=== PATIENT | male | born 1960 | race Caucasian/White ===

== ENCOUNTER 2017-01-27 11:22 | Emergency (ER) | payer OTHER ==
[2017-01-27 11:29] VITALS: TEMP 97.7; BMI 32.3
--- NOTE | 2017-01-27 11:57 | PDOC ---
History of Present Illness - General Chief Complaint: Lightheaded Stated Complaint: LIGHTHEADED Time Seen by Provider: 01/27/17 11:57 - History of Present Illness Initial Comments: 56 year old male with no PMH presenting with lightheadedness x2 over the past 24 hours. Patient states that he was on a diet for the past few weeks and went to zoroastrianism last night. When he kneeled to pray he began to feel slightly light headed and felt as if his left leg was heavy/ numb. When he stood up and began to walk he felt better. He believes that he was very hungry still and that caused his symptoms because he ate a heavy meal this morning and felt better. PCP: Rafiq 01/27/17 12:08 Past History - Past Medical History Allergies/Adverse Reactions: Allergies Allergy/AdvReac Type Severity Reaction Status Date / Time No Known Allergies Allergy Verified 01/27/17 11:26 Home Medications: Ambulatory Orders NK [No Known Home Medication] 01/27/17 COPD: No - Suicide/Smoking/Psychosocial Hx Smoking History: Never smoked Have you smoked in the past 12 months: No Information on smoking cessation initiated: No Hx Alcohol Use: No Drug/Substance Use Hx: No Substance Use Type: None Review of Systems - Review of Systems Constitutional: No: Chills, Diaphoresis HEENTM: No: Blurred Vision Respiratory: No: Cough, Orthopnea, Shortness of Breath, Wheezing Cardiac (ROS): Yes: Lightheadedness. No: Chest Pain, Irregular Heart Rate, Palpitations, Syncope ABD/GI: No: Constipated, Diarrhea, Nausea, Vomiting : No: Burning, Dysuria, Discharge Integumentary: No: Bruising, Change in Color, Erythema, Flushing Neurological: Yes: Paresthesia. No: Headache, Numbness Psychiatric: No: Anxiety, Depression *Physical Exam - Vital Signs Last Vital Signs Temp Pulse Resp BP Pulse Ox 97.7 F 76 18 143/73 100 01/27/17 11:26 01/27/17 11:26 01/27/17 11:26 01/27/17 11:26 01/27/17 11:26 - Physical Exam General Appearance: Yes: Nourished, Appropriately Dressed. No: Apparent Distress HEENT: positive: EOMI, LYNDSAY, Normal ENT Inspection, Normal Voice Neck: positive: Trachea midline, Normal Thyroid, Supple. negative: Tender, Rigid Respiratory/Chest: positive: Lungs Clear, Normal Breath Sounds. negative: Chest Tender, Respiratory Distress, Accessory Muscle Use Cardiovascular: positive: Regular Rhythm, Regular Rate Gastrointestinal/Abdominal: positive: Normal Bowel Sounds, Flat, Soft. negative : Tender Musculoskeletal: positive: Normal Inspection. 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 Denies any concerning signs or symptoms such as pre-syncopal sensation, palpitations, visual symptoms, gait disturbance, chest pain, or even weakness. No focal neurological signs. Does admit to poor PO water intake. Counseled him on the importance of fluid intake. His EKG is grossly normal and his labs are WNL. Feels much better after 1 L NS. Will DC home with return precautions. 01/27/17 13:30 *DC/Admit/Observation/Transfer Diagnosis at time of Disposition: Intermittent lightheadedness - Discharge Dispostion Disposition: HOME Condition at time of disposition: Improved Admit: No - Referrals - Patient Instructions Additional Instructions: We saw you for lightheadedness. We believe you were probably dehydrated as shown on your labs. Please drink plenty of water. Please return if you have any new or worsening symptoms. - Post Discharge Activity
[2017-01-27 12:26] LABS: BASOPHIL 0.4 % (0-2.0); EOSINOPHIL 0.5 % (0-4.5); MCH 31.3 pg (25.7-33.7); MCHC 33.8 g/dl (32.0-35.9); MEAN CELL VOLUME 92.6 fl (80-96); MEAN PLT VOLUME 9.1 fl (7.5-11.1); NEUTROPHILS 76.8 % (42.8-82.8); PLATELET COUNT 203 K/MM3 (134-434); RDW 13.1 % (11.9-15.9); WHITE BLOOD COUNT 12.6 K/mm3 (4.0-10.0)
[2017-01-27] MEDS ORDERED: SODIUM CHLORIDE 0.9% 1000 ML INFUS.BAG IV ONE (12:38)
--- NOTE | 2017-01-27 12:55 | PDOC ---
Attending Attestation - HPI HPI: 01/27/17 13:43 Patient is a 56 year old male with no significant past medical history who presents to the ED With complaints of lightheadedness that began yesterday at 10 pm. Patient reports eating dinner after coming home from mosque last night when he began to experience lightheadedness. He reports feeling warm while feeling lightheaded stating i felt like i had hot flashes all over. Patient states after 5 minutes, symptoms subsided and was gone throughout the night. He reports lightheadedness returned this morning 10 minutes after finishing his breakfast. Patient states currently feels hot but does not experience any dizziness. Denies nausea, vomiting. Denies fevers, chills. Denies contact with sick individuals, out of state travel. Denies any other symptoms. Allergies: None Social history: No smoking. Social drinker. No illicit drugs. Surgical history: None PMD: None - Physicial Exam PE: 01/27/17 13:43 Vitals: Triage Vital signs reviewed General Appearance: no acute distress, well nourished well developed Head: Atraumatic Chest Wall: Nontender Cardiac: Regular rate and rhythym, no murmurs, no rubs, no gallops Lungs: Clear to auscultation bilateral, good air movement bilaterally Abdomen: Soft, non distended, normal bowel sounds, non tender to palpation Extremities: Full range of motion to all extremities, no cyanosis, clubbing, or edema Skin: Warm and dry, no rashes or lesions, no rash, no petechiae Neuro: AOX3; Cranial Nerves 2-12 grossly intact, Strength intact to all extremities, Sensation intact to all extremities, gait normal Psych: Normal mood, normal affect - Medical Decision Making 01/27/17 13:44 Documentation prepared by Dg Parkinson, acting as medical reimbursement manager for Felipe Shipman MD, /DO. <Dg Parkinson - Last Filed: 01/27/17 13:43> - Resident Resident Name: Georges Milligan - ED Attending Attestation I have performed the following: I have examined & evaluated the patient, The case was reviewed & discussed with the resident, I agree w/resident's findings & plan, Exceptions are as noted - Medical Decision Making 01/27/17 12:55 56 years old with no past medical history presents to the ED with 2 day history of intermittent positional lightheadedness. Currently asymptomatic. Yesterday while at mosque kneeling down and standing up and today will getting out of bed. At this time normal neurologic examination we'll check labs EKG hydrate orthostatics and reassess 01/27/17 16:25 Normal neurologic examination patient completely asymptomatic able to ambulate comfortably around the emergency department to episodes of positional lightheadedness likely secondary to change in diet status post IV fluids patient feels much better nonischemic EKG labs within normal limits patient will follow-up with primary care provider this week or return to the ED for any severe worsening symptoms or for any concerns. <Felipe Shipman - Last Filed: 01/27/17 16:25>
[2017-01-27 13:06] LABS: ALBUMIN 4.3 g/dl (3.4-5.0); ALK PHOS 84 U/L (45-117); ANION GAP 9 (8-16); BILIRUBIN,TOTAL 0.9 mg/dL (0.2-1.0); CALCIUM 9.4 mg/dL (8.5-10.1); CO2 24 mmol/L (21-32); CREATININE 1.1 mg/dL (0.7-1.3); GLUCOSE,RANDOM 108 mg/dL (74-106); SGOT/AST 16 U/L (15-37); SGPT/ALT 35 U/L (12-78); TOT PROT 7.8 g/dl (6.4-8.2)
[2017-01-27 13:17] VITALS: BP 139/84; PULSE 66
--- NOTE | 2017-01-27 14:50 | EKG ---
Test Reason : Blood Pressure : / mmHG Vent. Rate : 076 BPM Atrial Rate : 076 BPM P-R Int : 158 ms QRS Dur : 078 ms QT Int : 370 ms P-R-T Axes : 064 057 043 degrees QTc Int : 416 ms NORMAL SINUS RHYTHM WITH SINUS ARRHYTHMIA POSSIBLE LEFT ATRIAL ENLARGEMENT BORDERLINE ECG NO PREVIOUS ECGS AVAILABLE Confirmed by LEN FRANKEL, YOANDY ([id number]) on 01/27/2017 2:49:30 PM Referred By: Confirmed By:YOANDY HARRINGTON MD
== END 2017-01-27 14:22 | disposition home or self-care (01) ==
LOC: JER 11:22
PROC: 3E0337Z Introduction of Electrolytic and Water Balance Substance into Peripheral Vein, Percutaneous Approach (ICD-10-PCS; principal; 2017-01-27)
DX: R42 Dizziness and giddiness (principal)
CPT/HCPCS: 36415; 80053; 85025; 93005; 93010; 99283-25